=== PATIENT | female | born 1950 | race African-American/Black ===

== ENCOUNTER 2019-01-20 11:03 | Emergency (ER) | payer MEDICARE, MEDICAID ==
[~2019-01-20] VITALS: Ht 154.9 cm; Wt 98.0 kg
[2019-01-20 15:14] VITALS: BP 176/94
== END 2019-01-20 15:18 | disposition home or self-care (01) ==
LOC: ER 11:03
DX: M17.11 Unilateral primary osteoarthritis, right knee (principal); E11.9 Type 2 diabetes mellitus without complications; I10 Essential (primary) hypertension
CPT/HCPCS: 73560; 73590; 93971; 99284